=== PATIENT | male | born 1995 | race Caucasian/White ===

== ENCOUNTER 2018-01-18 23:28 | Emergency (ER) | payer OTHER ==
[2018-01-19] MEDS: IBUPROFEN LIQUID (PED) 20 MG/ML CUP PO (03:31)
== END 2018-01-19 04:48 | disposition home or self-care (01) ==
LOC: FTE 23:28
DX: S60.052A Contusion of left little finger without damage to nail, initial encounter (principal); W18.39XA Other fall on same level, initial encounter; Y92.9 Unspecified place or not applicable
CPT/HCPCS: 73130; 73130-LT; 99283-25